=== PATIENT | female | born 1970 | race Two or more races ===

== ENCOUNTER 2016-05-23 10:15 | Emergency (ER) | payer OTHER ==
[2016-05-23 11:38] LABS: I-STAT CREATININE 0.6 mg/dL (0.6-1.3)
[2016-05-23 11:42] LABS: ABSOLUTE NEUTROPHIL COUNT 6.7 K/mm3 (1.8-7.7); BASO % 0.3 % (0.2-1.0); EOS % 0.4 % (0.9-2.9); HEMATOCRIT 39.9 % (37.0-47.0); HEMOGLOBIN 13.2 gm/l (12.0-16.0); IMM NEUT% 0.3 % (0-1); LYMPH # 2.2 (1.0-4.8); LYMPH % 22.6 % (15-45); MEAN CORPUSCULAR HEMOGLOBIN 28.4 pg (27.0-31.0); MEAN CORPUSCULAR HGB CONC 33.1 g/dl (33.0-37.0); MEAN PLATELET VOLUME 8.6 fl (7.4-10.4); MONO # 0.6 (0.0-0.8); MONO % 6.1 % (4-12); NEUT % 70.3 % (43-75); PLATELET COUNT 297 K/mm3 (130-400); RED CELL DISTRIBUTION WIDTH 13.8 % (11.5-14.5)
[2016-05-23 11:52] LABS: URINE BILIRUBIN NEGATIVE (NEGATIVE); URINE BLOOD NEGATIVE (NEGATIVE); URINE GLUCOSE (UA) NEGATIVE (NEGATIVE); URINE LEUKOCYTE ESTERASE NEGATIVE (NEGATIVE); URINE NITRITE NEGATIVE (NEGATIVE); URINE PROTEIN NEGATIVE (NEGATIVE); URINE UROBILINOGEN NORMAL (0-1 mg/dl)
[2016-05-23 11:53] LABS: URINE APPEARANCE CLEAR; URINE COLOR YELLOW
[2016-05-23 11:56] LABS: HCG,QUALITATIVE URINE NEGATIVE
[2016-05-23] MEDS ORDERED: LACTATED RINGERS 1,000 ML ONE (12:56)
[2016-05-23] MEDS ORDERED: MECLIZINE HCL 25 MG TABLET ONE (12:56)
[2016-05-24 17:40] LABS: ALB/GLOB RATIO 1.3 (>1.0); ALBUMIN 4.3 gm/dL (3.5-5.7)
== END 2016-05-23 13:30 | disposition home or self-care (01) ==
LOC: ED 10:15
DX: R42 Dizziness and giddiness (principal)
CPT/HCPCS: 81025; 85025; 80053; 81003; 84484; 99283 ×2; 93005; A9270; J7120